=== PATIENT | male | born 1995 | race Caucasian/White ===

== ENCOUNTER 2016-09-10 13:20 | Emergency (ER) | payer SELFPAY | END 2016-09-10 14:47 | disposition home or self-care (01) | LOC: ER1 13:20 | DX: Z20.2 Contact with and (suspected) exposure to infections with a predominantly sexual mode of transmission (principal); F17.210 Nicotine dependence, cigarettes, uncomplicated | CPT/HCPCS: 99282 ==

== ENCOUNTER → 2021-10-10 | Outpatient (CLI) | payer BC | LOC: KOH-I 10:49 | DX: M54.16 Radiculopathy, lumbar region (principal); R20.2 Paresthesia of skin; Z74.09 Other reduced mobility; M47.815 Spondylosis without myelopathy or radiculopathy, thoracolumbar region | CPT/HCPCS: 72100 ==